=== PATIENT | female | born 1945 | race Caucasian/White ===

== ENCOUNTER → 2019-12-10 | Outpatient (CLI) | payer MEDICARE ==
--- NOTE | 2019-12-14 11:12 | MM ---
Reason for exam: additional evaluation requested from prior study. Last mammogram was performed 11 months ago. History: Patient is postmenopausal. Lumpectomy of the right breast, January 26, 2019. Excisional biopsy of the right breast, 2019. Radiation therapy. Took hormonal contraceptives for 10 years. Took estrogen for 15 years. Physical Findings: Nurse did not find any significant physical abnormalities on exam. MG 3D Diag Mammo W/Cad SANTANA Bilateral CC and MLO view(s) were taken. XCCL view(s) were taken of the right breast. Prior study comparison: December 31, 2018, mammogram. December 08, 2018, mammogram. June 11, 2016, mammogram. May 18, 2010, mammogram. The breast tissue is heterogeneously dense. This may lower the sensitivity of mammography. Post surgical and post therapy change right breast, continued follow up recommeded. Inferior posterior asymmetric density on the left MLO does not persist on the second MLO. These results were verbally communicated with the patient and result sheet given to the patient on 12/10/19. ASSESSMENT: Probably benign, BI-RAD 3 RECOMMENDATION: Follow-up diagnostic mammogram of the right breast in 6 months. (post therapy follow up)
== END | disposition home or self-care (01) ==
LOC: RADMAMWWP 12:48
PROVIDERS: ATTEND Radiology Radiation Oncology
DX: C50.411 Malignant neoplasm of upper-outer quadrant of right female breast (principal); Z17.0 Estrogen receptor positive status [ER+]
CPT/HCPCS: 77066; G0279; 77062

== ENCOUNTER → 2020-06-09 | Outpatient (CLI) | payer MEDICARE ==
--- NOTE | 2020-06-09 12:32 | MM ---
Reason for exam: follow-up at short interval from prior study. Last mammogram was performed 6 months ago. History: Patient is postmenopausal and has history of breast cancer at age 73. Lumpectomy of the right breast, January 26, 2019. Excisional biopsy of the right breast, 2018. Radiation therapy. Took hormonal contraceptives for 10 years. Took estrogen for 15 years. Physical Findings: Nurse did not find any significant physical abnormalities on exam. MG 3D Diag Mammo W/Cad RT CC, MLO, and XCCL view(s) were taken of the right breast. Prior study comparison: December 10, 2019, bilateral MG 3d diag mammo w/cad SANTANA. The breast tissue is heterogeneously dense. This may lower the sensitivity of mammography. Post surgical and post therapy change right breast. Central CC asymmetric density does not persist on the XCCL view. Continued follow up recommended to assess for any evolving post therapy change. These results were verbally communicated with the patient and result sheet given to the patient on 06/09/20. ASSESSMENT: Probably benign, BI-RAD 3 RECOMMENDATION: Follow-up diagnostic mammogram of both breasts in 6 months. Back on schedule for November 2020.
== END | disposition home or self-care (01) ==
LOC: RADMAMWWP 10:47
PROVIDERS: ATTEND Radiology Radiation Oncology
DX: C50.411 Malignant neoplasm of upper-outer quadrant of right female breast (principal); Z85.3 Personal history of malignant neoplasm of breast; Z78.0 Asymptomatic menopausal state
CPT/HCPCS: 77065; G0279; 77061

== ENCOUNTER → 2020-12-12 | Outpatient (CLI) | payer MEDICARE ==
--- NOTE | 2020-12-12 09:45 | MM ---
Reason for exam: additional evaluation requested from prior study. Last mammogram was performed 6 months ago. History: Patient is postmenopausal and has history of breast cancer at age 73. Lumpectomy of the right breast, January 26, 2019. Excisional biopsy of the right breast, 2018. Radiation therapy. Took hormonal contraceptives for 10 years. Took estrogen for 15 years. Physical Findings: Nurse did not find any significant physical abnormalities on exam. MG 3D Diag Mammo W/Cad SANTANA Bilateral CC and MLO view(s) were taken. Prior study comparison: June 09, 2020, right breast MG 3d diag mammo w/cad RT. December 10, 2019, bilateral MG 3d diag mammo w/cad SANTANA. The breast tissue is heterogeneously dense. This may lower the sensitivity of mammography. Finding: Architectural distortion in the upper outer quadrant, posterior position of the right breast consistent with post treatment changes. There is no discrete abnormality. These results were verbally communicated with the patient and result sheet given to the patient on 12/12/20. ASSESSMENT: Benign, BI-RAD 2 RECOMMENDATION: Follow-up diagnostic mammogram of both breasts in 1 year.
== END | disposition home or self-care (01) ==
LOC: RADMAMWWP 08:41
PROVIDERS: ATTEND Radiology Radiation Oncology
DX: N64.89 Other specified disorders of breast (principal); Z85.3 Personal history of malignant neoplasm of breast; Z78.0 Asymptomatic menopausal state
CPT/HCPCS: 77066; G0279; 77062

== ENCOUNTER → 2021-12-13 | Outpatient (CLI) | payer MEDICARE ==
--- NOTE | 2021-12-13 13:57 | MM ---
Reason for Exam: Hx of breast cancer, conservation therapy. Last screening mammogram was performed 12 month(s) ago. Patient History: Menarche at age 16. First Full-Term at age 19. Right ovary removed at age 31. Postmenopausal. Breast cancer, right, age 73. Previous chest radiation therapy at age 73. Patient used Estrogen for 15 years. Patient used Hormonal Contraceptives for 10 years. 2019, Excisional Biopsy on the Right side. 01/26/2019, Lumpectomy on the Right side. Radiation Therapy. Prior Study Comparison: 12/10/2019 Bilateral Diagnostic Mammogram, [facility]. 06/09/2020 Right Diagnostic Mammogram, [facility]. 12/12/2020 Bilateral Diagnostic Mammogram, [facility]. Tissue Density: The breast tissue is heterogeneously dense. This may lower the sensitivity of mammography. Findings: Analyzed By CAD. Postsurgical and posttreatment change right breast. No significant change from prior exams. Overall Assessment: Benign, BI-RAD 2 Management: Screening Mammogram of both breasts in 1 year. 1. Patient should continue monthly self breast exams. 2. A clinical breast exam by your physician is recommended on an annual basis. 3. This exam should not preclude additional follow-up of suspicious palpable abnormalities. Results were given to the patient verbally at the time of exam. Electronically signed and approved by: Corky Sandoval M.D. Radiologist
== END | disposition home or self-care (01) ==
LOC: RADMAMWWP 12:48
PROVIDERS: ATTEND Radiology Radiation Oncology
DX: C50.411 Malignant neoplasm of upper-outer quadrant of right female breast (principal); Z78.0 Asymptomatic menopausal state
CPT/HCPCS: 77066; G0279; 77062

== ENCOUNTER → 2022-12-16 | Outpatient (CLI) | payer MEDICARE ==
--- NOTE | 2022-12-16 11:19 | MM ---
Reason for Exam: Hx of breast cancer, conservation therapy. Last mammogram was performed 2 year(s) and 0 month(s) ago. Patient History: Menarche at age 16. First Full-Term at age 19. Right ovary removed at age 31. Postmenopausal. Breast cancer, right, age 73. Previous chest radiation therapy at age 73. Patient used Estrogen for 15 years. Patient used Hormonal Contraceptives for 10 years. 2019, Excisional Biopsy on the Right side. 01/26/2019, Lumpectomy on the Right side. Radiation Therapy. Prior Study Comparison: 05/18/2010 Screening Mammogram, Unknown. 06/11/2016 Screening Mammogram, Unknown. 12/08/2018 Screening Mammogram, Unknown. 12/31/2018 Screening Mammogram, Unknown. 12/10/2019 Bilateral Diagnostic Mammogram, [facility]. 06/09/2020 Right Diagnostic Mammogram, [facility]. 12/12/2020 Bilateral Diagnostic Mammogram, [facility]. 12/13/2021 Bilateral MG 3D diag mammo w/cad SANTANA, [facility]. Tissue Density: The breast tissue is heterogeneously dense. This may lower the sensitivity of mammography. Findings: Analyzed By CAD. Right breast surgical clips. No new suspicious masses, calcifications or distortions. Overall Assessment: Benign, BI-RAD 2 Management: Screening Mammogram of both breasts in 1 year. Results were given to the patient verbally at the time of exam. Patient should continue monthly self-breast exams. A clinical breast exam by your physician is recommended on an annual basis. This exam should not preclude additional follow-up of suspicious palpable abnormalities. Note on Kate scores and lifetime risk: 1. A Kate score greater than 3% is considered moderate risk. If this is the case, consider specialist referral to assess eligibility for a risk reducing agent. 2. If overall lifetime risk for the development of breast cancer is 20% or higher, the patient may qualify for future screening with alternating mammogram and breast MRI. Electronically signed and approved by: Chandler Rai DO
== END | disposition home or self-care (01) ==
LOC: RADMAMWWP 10:42
PROVIDERS: ATTEND Radiology Radiation Oncology
DX: R92.333 Mammographic heterogeneous density, bilateral breasts (principal); Z78.0 Asymptomatic menopausal state; Z85.3 Personal history of malignant neoplasm of breast
CPT/HCPCS: 77062; 77066

== ENCOUNTER → 2023-07-25 | Outpatient (CLI) | payer MEDICARE ==
[2023-07-25 18:18] LABS: ALT 25 U/L (8-44); AST 27 U/L (13-35); Chol/HDL Ratio 2.68 Ratio; LDL Cholesterol,Calculated 72.4 mg/dL (0.0-131.0)
== END | disposition home or self-care (01) ==
LOC: LABWHC1 09:35
PROVIDERS: ATTEND Internal Medicine Cardiovascular Disease
DX: E78.2 Mixed hyperlipidemia (principal)
CPT/HCPCS: 36415; 80061; 84450; 84460

== ENCOUNTER 2023-10-30 15:39 | Observation (INO) | payer MEDICARE ==
[2023-10-30 16:12] LABS: Basophils # (A) 0.1 k/uL (0-0.2); Basophils % (A) 1 %; Eosinophils # (A) 0.5 k/uL (0-0.7); Eosinophils % (A) 6 %; HCT 42.6 % (34.0-46.0); HGB 13.9 gm/dL (11.4-16.0); Lymphocytes # (A) 1.8 k/uL (1.0-4.8); Lymphocytes % (A) 21 %; MCH 29.1 pg (25.0-35.0); MCHC 32.6 g/dL (31.0-37.0); MCV 89.1 fL (80.0-100.0); Mean Platelet Volume 8.7; Monocytes # (A) 0.7 k/uL (0-1.0); Monocytes % (A) 8 %; Neutrophils # (A) 5.3 k/uL (1.3-7.7); Neutrophils % (A) 63 %; Platelet Count 227 k/uL (150-450); RBC 4.78 m/uL (3.80-5.40); RDW 12.6 % (11.5-15.5); WBC 8.5 k/uL (3.8-10.6)
[2023-10-30 16:31] LABS: ALT 17 U/L (4-34); AST 31 U/L (14-36); African American GFR (CKD) >90 (>60 ml/min/1.73 sqM); Albumin 3.8 g/dL (3.5-5.0); Alkaline Phosphatase 74 U/L (38-126); Anion Gap 7 mmol/L; Blood Urea Nitrogen 12 mg/dL (7-17); Calcium 9.2 mg/dL (8.4-10.2); Carbon Dioxide 28 mmol/L (22-30); Chloride 104 mmol/L (98-107); Glucose 123 mg/dL (74-99); Magnesium 1.9 mg/dL (1.6-2.3); Non-African American GFR(CKD) 84 (>60 ml/min/1.73 sqM); Potassium 3.8 mmol/L (3.5-5.1); Sodium 139 mmol/L (137-145); Total Bilirubin 1.1 mg/dL (0.2-1.3); Total Protein 6.6 g/dL (6.3-8.2)
[2023-10-30 16:32] LABS: INR 0.8 (<1.2); Partial Thromboplastin Time 22.9 sec (22.0-30.0); Prothrombin Time 9.6 sec (10.0-12.5)
--- NOTE | 2023-10-30 16:37 | ED ---
General Adult HPI - General Chief complaint: Chest Pain Stated complaint: upper back pain Time Seen by Provider: 10/30/23 15:50 Source: patient, RN notes reviewed, old records reviewed Mode of arrival: ambulatory Limitations: no limitations - History of Present Illness Initial comments: This is a 78-year-old female who presents to the emergency department stating that she was sitting in a chair and she started having pain under the left scapula. Patient states she also has a little bit of anterior left chest pain when she takes a deep breath. Patient denies any fever chills or cough. Patient states certain movements do seem to make the pain worse but not always. Patient denies shortness of breath but states there is some pain occasionally to deep breathing. Patient has had a heart attack in the past and states that the pain was all in her back at that time 2. Patient denies any abdominal pain patient has nausea vomiting diarrhea - Related Data Home Medications Medication Instructions Recorded Confirmed ALPRAZolam [Xanax] 0.25 - 0.5 mg PO TID PRN 10/30/23 10/30/23 Aspirin EC [Ecotrin Low Dose] 81 mg PO DAILY 10/30/23 10/30/23 Cholecalciferol (Vitamin D3) 50 mcg PO DAILY 10/30/23 10/30/23 [Vitamin D3 (50 Mcg = 2000 Iu)] Cyclobenzaprine [Flexeril] 10 mg PO Q8H PRN 10/30/23 10/30/23 Ezetimibe/Simvastatin 1 tab PO DAILY 10/30/23 10/30/23 [Ezetimibe-Simvastatin 10-40 mg] PARoxetine HCL 40 mg PO DAILY 10/30/23 10/30/23 atenoloL 25 mg PO BID 10/30/23 10/30/23 Allergies Allergy/AdvReac Type Severity Reaction Status Date / Time Penicillins Allergy Rash/Hives Verified 10/30/23 17:41 Sulfa (Sulfonamide Allergy Rash/Hives Verified 10/30/23 17:41 Antibiotics) Review of Systems ROS Statement: Those systems with pertinent positive or pertinent negative responses have been documented in the HPI. ROS Other: All systems not noted in ROS Statement are negative. Past Medical History Past Medical History: Coronary Artery Disease (CAD), Chest Pain / Angina, Hyperlipidemia, Hypertension History of Any Multi-Drug Resistant Organisms: None Reported Past Psychological History: Depression Smoking Status: Never smoker Past Alcohol Use History: None Reported Past Drug Use History: None Reported General Exam - General Exam Comments Initial Comments: GENERAL: Patient is well-developed and well-nourished. Patient is nontoxic and well-hy drated and is in mild distress. ENT: Neck is soft and supple. No significant lymphadenopathy is noted. Oropharynx is clear. Moist mucous membranes. Neck has full range of motion without eliciting any pain. EYES: The sclera were anicteric and conjunctiva were pink and moist. Extraocular move ments were intact and pupils were equal round and reactive to light. Eyelids were unremarkable. PULMONARY: Unlabored respirations. Good breath sounds bilaterally. No audible rales rhonchi or wheezing was noted. CARDIOVASCULAR: There is a regular rate and rhythm without any murmurs gallops or rubs. ABDOMEN: Soft and nontender with normal bowel sounds. SKIN: Skin is clear with no lesions or rashes and otherwise unremarkable. NEUROLOGIC: Patient is alert and oriented x3. Cranial nerves II through XII are grossly intact. Motor and sensory are also intact. Normal speech, volume and content. Symmetrical smile. MUSCULOSKELETAL: Normal extremities with adequate strength and full range of motion. No lower extremity swelling or edema. No calf tenderness. I was unable to elicit the patient's pain on palpation or with movement of the arm LYMPHATICS: No significant lymphadenopathy is noted PSYCHIATRIC: Normal psychiatric evaluation. Limitations: no limitations Course Vital Signs 10/30/23 15:41 Temperature 98.3 F Pulse Rate 76 Respiratory 20 Rate Blood Pressure 159/99 O2 Sat by Pulse 97 Oximetry Medical Decision Making - Medical Decision Making EKG is interpreted by myself but EKG shows sinus rhythm at 66 bpm [place] interval 184 QRS is 80 QT interval 390 QTc is 402. Patient's EKG shows no ST segment elevation or depression Was pt. sent in by a medical professional or institution (, PA, DIESEL ENGINE PIPE FITTER, urgent care, hospital, or residential...) When possible be specific @ -No Did you speak to anyone other than the patient for history (EMS, parent, family, police, friend...)? What history was obtained from this source @ -No Did you review nursing and triage notes (agree or disagree)? Why? @ -I reviewed and agree with nursing and triage notes Were old charts reviewed (outside hosp., previous admission, EMS record, old EKG, old radiological studies, urgent care reports/EKG's, residential records)? Report findings @ -No old charts were reviewed Differential Diagnosis? @ -Differential Chest Pain: Stable Angina, Unstable Angina, STEMI, NSTEMI Aortic Dissection, Pneumothorax, Musculoskeletal, Esophageal Spasm GERD, Cholecystitis, Pancreatitis, Zoster, this is not meant to be an all-inclusive list. EKG interpreted by me (3pts min.). @ -As above X-rays interpreted by me (1pt min.). @ -Chest x-ray shows no acute normality CT interpreted by me (1pt min.). @ -None done U/S interpreted by me (1pt. min.). @ -None done What testing was considered but not performed or refused? (CT, X-rays, U/S, labs)? Why? @ -None What meds were considered but not given or refused? Why? @ -None Did you discuss the management of the patient with other professionals (professionals i.e. , PA, DIESEL ENGINE PIPE FITTER, lab, RT, psych nurse, family welfare social work professor, school occupational therapist, teacher, control officer, oil field caser)? Give summary @ -I spoke with [facility]ist they agreed admit the patient admit the patient wrote admitting orders Was smoking cessation discussed for >3mins.? @ -No Was critical care preformed (if so, how long)? @ -No Were there social determinants of health that impacted care today? How? (Homelessness, low income, unemployed, alcoholism, drug addiction, transportation, low edu. Level, literacy, decrease access to med. care, mcc, re hab)? @ -No Was there de-escalation of care discussed even if they declined (Discuss DNR or withdrawal of care, Hospice)? DNR status @ -No What co-morbidities impacted this encounter? (DM, HTN, Smoking, COPD, CAD, Cancer, CVA, ARF, Chemo, Hep., AIDS, mental health diagnosis, sleep apnea, morbid obesity)? @ -None Was patient admitted / discharged? Hospital course, mention meds given and route, prescriptions, significant lab abnormalities, going to OR and other pertinent info. @ -I went in the room after lab work came back and discussed the lab work with the patient and she stated to me that that nitro cream that I put on her chest took away her pain entirely. Was at this point in time along with her past history that I saw the patient should be admitted I spoke with [facility] hospitalist agreed admit the patient admit the patient wrote admitting orders and I consulted cardiology Undiagnosed new problem with uncertain prognosis? @ -No Drug Therapy requiring intensive monitoring for toxicity (Heparin, Nitro, Insulin, Cardizem)? @ -No Were any procedures done? @ -No Diagnosis/symptom? @ -Chest pain Acute, or Chronic, or Acute on Chronic? @ -Acute Uncomplicated (without systemic symptoms) or Complicated (systemic symptoms)? @ -Complicated Side effects of treatment? @ -No Exacerbation, Progression, or Severe Exacerbation? @ -No Poses a threat to life or bodily function? How? (Chest pain, [place], [place], pneumonia, PE, COPD, DKA, ARF, appy, cholecystitis, CVA, Diverticulitis, Homicidal, Suicidal, threat to staff... and all critical care pts) @ -Yes this could lead to an [place] and end organ dysfunction - Lab Data Result diagrams: 10/30/23 15:49 10/30/23 15:49 Lab Results 10/30/23 10/30/23 10/30/23 Range/Units 15:49 15:49 15:49 WBC 8.5 (3.8-10.6) k/uL RBC 4.78 (3.80-5.40) m/uL Hgb 13.9 (11.4-16.0) gm/dL Hct 42.6 (34.0-46.0) % MCV 89.1 (80.0-100.0) fL MCH 29.1 (25.0-35.0) pg MCHC 32.6 (31.0-37.0) g/dL RDW 12.6 (11.5-15.5) % Plt Count 227 (150-450) k/uL MPV 8.7 Neutrophils % 63 % Lymphocytes % 21 % Monocytes % 8 % Eosinophils % 6 % Basophils % 1 % Neutrophils # 5.3 (1.3-7.7) k/uL Lymphocytes # 1.8 (1.0-4.8) k/uL Monocytes # 0.7 (0-1.0) k/uL Eosinophils # 0.5 (0-0.7) k/uL Basophils # 0.1 (0-0.2) k/uL PT 9.6 L (10.0-12.5) sec INR 0.8 (<1.2) APTT 22.9 (22.0-30.0) sec D-Dimer (<0.60) mg/L FEU Sodium 139 (137-145) mmol/L Potassium 3.8 (3.5-5.1) mmol/L Chloride 104 (98-107) mmol/L Carbon Dioxide 28 (22-30) mmol/L Anion Gap 7 mmol/L BUN 12 (7-17) mg/dL Creatinine 0.70 (0.52-1.04) mg/dL Est GFR (CKD-EPI)AfAm >90 (>60 ml/min/1.73 sqM) Est GFR (CKD-EPI)NonAf 84 (>60 ml/min/1.73 sqM) Glucose 123 H (74-99) mg/dL Calcium 9.2 (8.4-10.2) mg/dL Magnesium 1.9 (1.6-2.3) mg/dL Total Bilirubin 1.1 (0.2-1.3) mg/dL AST 31 (14-36) U/L ALT 17 (4-34) U/L Alkaline Phosphatase 74 (38-126) U/L Troponin I (0.000-0.034) ng/mL Total Protein 6.6 (6.3-8.2) g/dL Albumin 3.8 (3.5-5.0) g/dL 10/30/23 10/30/23 Range/Units 15:49 15:49 WBC (3.8-10.6) k/uL RBC (3.80-5.40) m/uL Hgb (11.4-16.0) gm/dL Hct (34.0-46.0) % MCV (80.0-100.0) fL MCH (25.0-35.0) pg MCHC (31.0-37.0) g/dL RDW (11.5-15.5) % Plt Count (150-450) k/uL MPV Neutrophils % % Lymphocytes % % Monocytes % % Eosinophils % % Basophils % % Neutrophils # (1.3-7.7) k/uL Lymphocytes # (1.0-4.8) k/uL Monocytes # (0-1.0) k/uL Eosinophils # (0-0.7) k/uL Basophils # (0-0.2) k/uL PT (10.0-12.5) sec INR (<1.2) APTT (22.0-30.0) sec D-Dimer 0.56 (<0.60) mg/L FEU Sodium (137-145) mmol/L Potassium (3.5-5.1) mmol/L Chloride (98-107) mmol/L Carbon Dioxide (22-30) mmol/L Anion Gap mmol/L BUN (7-17) mg/dL Creatinine (0.52-1.04) mg/dL Est GFR (CKD-EPI)AfAm (>60 ml/min/1.73 sqM) Est GFR (CKD-EPI)NonAf (>60 ml/min/1.73 sqM) Glucose (74-99) mg/dL Calcium (8.4-10.2) mg/dL Magnesium (1.6-2.3) mg/dL Total Bilirubin (0.2-1.3) mg/dL AST (14-36) U/L ALT (4-34) U/L Alkaline Phosphatase (38-126) U/L Troponin I <0.012 (0.000-0.034) ng/mL Total Protein (6.3-8.2) g/dL Albumin (3.5-5.0) g/dL Disposition Clinical Impression: Chest pain Disposition: ADMITTED IP TO THIS [facility] Referrals: Som Ivy MD [Primary Care Provider] - 1-2 days Time of Disposition: 18:18
[2023-10-30] MEDS: NITROGLYCERIN OINT 1 INCH/GM PACKET TOPICAL STA (16:56)
[2023-10-30] MEDS: ASPIRIN 81 MG PO STA (16:56)
--- NOTE | 2023-10-30 17:06 | XR ---
EXAMINATION TYPE: XR chest 2V DATE OF EXAM: 10/30/2023 4:48 PM CLINICAL INDICATION: Female, 78 years old with history of Chest Pain; COMPARISON: None TECHNIQUE: XR chest 2V Frontal view of the chest. FINDINGS: Lungs/Pleura: There is no evidence of pleural effusion, focal consolidation, or pneumothorax. Pulmonary vascularity: Unremarkable. Heart/mediastinum: Cardiomediastinal silhouette is unremarkable. Musculoskeletal: No acute osseous pathology. IMPRESSION: 1. No acute cardiopulmonary disease process. 2. COPD changes.
[2023-10-30] MEDS ORDERED: NITROGLYCERIN SL TABS 0.4 MG TAB SUBLINGUAL PRN (18:19)
[2023-10-30] MEDS ORDERED: ALPRAZolam 0.5 MG TAB PO PRN (18:20)
[2023-10-30] MEDS ORDERED: CYCLOBENZAPRINE 10 MG TAB PO PRN (18:20)
[2023-10-30] MEDS: atenoloL 25 MG TAB PO SCH (21:08)
[2023-10-30] MEDS: NITROGLYCERIN OINT 1 INCH/GM PACKET TOPICAL SCH (23:51)
[2023-10-31] MEDS ORDERED: ALPRAZolam 0.5 MG TAB PO PRN (07:51)
[2023-10-31] MEDS ORDERED: NITROGLYCERIN SL TABS 0.4 MG TAB SUBLINGUAL PRN (07:51)
[2023-10-31 08:50] LABS: Chol/HDL Ratio 3.22 Ratio; LDL Cholesterol,Calculated 78.8 mg/dL (0.0-131.0)
[2023-10-31] MEDS: ATORVASTATIN 80 MG TAB PO STA (08:58)
[2023-10-31] MEDS: ASPIRIN 325 MG TAB PO STA (08:58)
[2023-10-31] MEDS: ASPIRIN 325 MG TAB PO SCH (08:58)
[2023-10-31] MEDS: EZETIMIBE 10 MG TAB PO SCH (08:59)
[2023-10-31] MEDS: ATORVASTATIN 20 MG TAB PO SCH (08:59)
[2023-10-31] MEDS: SODIUM CHLORIDE 0.9% 1,000 ML in EMPTY BAG 1 BAG IV SCH (09:22)
--- NOTE | 2023-10-31 09:28 | P.CRDCN ---
History of Present Illness History of present illness: HISTORY OF PRESENT ILLNESS: This is a 78-year-old female with a past medical history significant for hypertension and hyperlipidemia. Patient follows in the office with Dr. Duarte. We have been asked to see the patient in consultation for chest pain. Patient examined at the bedside by Dr. Duarte. Patient states that she was at [employer] when she began to have pain in the middle of her chest. She states the pain radiated into her left arm and shoulder blade. At the time of examination, the patient denies any chest pain or pressure. Vital signs are stable. DIAGNOSTICS: - EKG reveals sinus mechanism with no signs of acute ischemia - Chest xray negative for acute process. COPD changes. - Laboratory data: Troponin negative x 3 - Current home cardiac medications include atenolol 25 mg twice a day, ezetimibe/simvastatin 10-40 mg daily, aspirin 81 mg daily - Most recent echocardiogram obtained in 2020 revealed ejection fraction 50 to 55%, mild mitral regurgitation, mild tricuspid regurgitation - Cardiac catheterization history: 2007 revealing minimal CAD REVIEW OF SYSTEMS: At the time of my exam: CONSTITUTIONAL: Denies fever or chills. HEENT: Denies blurred vision, vision changes, or eye pain. Denies hemoptysis CARDIOVASCULAR: Denies chest pain. Denies orthopnea. Denies PND. Denies palpitations RESPIRATORY: Denies shortness of breath. GASTROINTESTINAL: Denies abdominal pain. Denies nausea or vomiting. HEMATOLOGIC: Denies bleeding disorders. GENITOURINARY: Denies any blood in urine. SKIN: Denies pruitis. Denies rash. PHYSICAL EXAM: VITAL SIGNS: Reviewed. GENERAL: Well-developed in no acute distress. HEENT: Head is normocephalic. Pupils are equal, round. Sclerae anicteric. Mucous membranes of the mouth are moist. Neck supple. No JVD or thyromegaly LUNGS: Respirations even and unlabored. Lungs essentially clear to auscultation bilaterally. HEART: Regular rate and rhythm. S1 and S2 heard. ABDOMEN: Soft. Nondistended. Nontender. EXTREMITIES: Normal range of motion. No clubbing or cyanosis. Peripheral pulses intact. No lower extremity edema NEUROLOGIC: Awake and alert. Oriented x 3. ASSESSMENT: Chest pain/unstable angina Minimal CAD, per cardiac catheterization 2007 Hypertension Hyperlipidemia PLAN: An acute coronary event has been ruled out Obtain 2D echo to assess cardiac structure and function Resume home cardiac medications Patient to undergo cardiac catheterization today with Dr. Duarte Further recommendations pending patient course Nurse practitioner note has been reviewed by physician. Signing provider agrees with the documented findings, assessment, and plan of care documented by TECHNICAL PROPOSAL WRITER as a scribe. Past Medical History Past Medical History: Coronary Artery Disease (CAD), Chest Pain / Angina, Hyperlipidemia, Hypertension History of Any Multi-Drug Resistant Organisms: None Reported Past Surgical History: Appendectomy, Tonsillectomy Additional Past Surgical History / Comment(s): R lung tumor, R lumpectomy with node removal, benign Past Psychological History: Depression Smoking Status: Never smoker Past Alcohol Use History: None Reported Past Drug Use History: None Reported - Past Family History Mother Additional Family Medical History / Comment(s): Heart problems Medications and Allergies Home Medications Medication Instructions Recorded Confirmed Type ALPRAZolam [Xanax] 0.25 - 0.5 mg PO TID PRN 10/30/23 10/30/23 History Aspirin EC [Ecotrin Low Dose] 81 mg PO DAILY 10/30/23 10/30/23 History Cholecalciferol (Vitamin D3) 50 mcg PO DAILY 10/30/23 10/30/23 History [Vitamin D3 (50 Mcg = 2000 Iu)] Cyclobenzaprine [Flexeril] 10 mg PO Q8H PRN 10/30/23 10/30/23 History Ezetimibe/Simvastatin 1 tab PO DAILY 10/30/23 10/30/23 History [Ezetimibe-Simvastatin 10-40 mg] PARoxetine HCL 40 mg PO DAILY 10/30/23 10/30/23 History atenoloL 25 mg PO BID 10/30/23 10/30/23 History Allergies Allergy/AdvReac Type Severity Reaction Status Date / Time Penicillins Allergy Rash/Hives Verified 10/30/23 17:41 Sulfa (Sulfonamide Allergy Rash/Hives Verified 10/30/23 17:41 Antibiotics) Physical Exam Vitals: Vital Signs Temp Pulse Pulse Resp BP BP Pulse Ox 10/31/23 02:37 97.7 F 59 L 16 133/78 95 10/31/23 00:02 97.8 F 56 L 16 157/74 97 10/30/23 22:19 98.0 F 58 L 16 131/78 94 L 10/30/23 21:07 67 16 123/95 94 L 10/30/23 20:07 97.8 F 73 18 146/91 95 10/30/23 15:41 98.3 F 76 20 159/99 97 Intake and Output 10/30/23 10/31/23 10/31/23 22:59 06:59 14:59 Intake Total 0 Balance 0 Intake: Oral 0 Other: Voiding Method Toilet # Voids 2 Weight 78.925 kg Results 10/30/23 15:49 10/30/23 15:49 Cardiac Enzymes 10/30/23 10/30/23 10/30/23 Range/Units 15:49 15:49 18:52 AST 31 (14-36) U/L Troponin I <0.012 <0.012 (0.000-0.034) ng/mL 10/30/23 Range/Units 21:34 AST (14-36) U/L Troponin I <0.012 (0.000-0.034) ng/mL Coagulation 10/30/23 Range/Units 15:49 PT 9.6 L (10.0-12.5) sec APTT 22.9 (22.0-30.0) sec Lipids 10/30/23 Range/Units 02:32 Triglycerides 147.00 (0.00-149.00) mg/dL Cholesterol 157.00 (0.00-200.00) mg/dL HDL Cholesterol 48.80 (40.00-60.00) mg/dL Cholesterol/HDL Ratio 3.22 Ratio CBC 10/30/23 Range/Units 15:49 WBC 8.5 (3.8-10.6) k/uL RBC 4.78 (3.80-5.40) m/uL Hgb 13.9 (11.4-16.0) gm/dL Hct 42.6 (34.0-46.0) % Plt Count 227 (150-450) k/uL Comprehensive Metabolic Panel 10/30/23 Range/Units 15:49 Sodium 139 (137-145) mmol/L Potassium 3.8 (3.5-5.1) mmol/L Chloride 104 (98-107) mmol/L Carbon Dioxide 28 (22-30) mmol/L BUN 12 (7-17) mg/dL Creatinine 0.70 (0.52-1.04) mg/dL Glucose 123 H (74-99) mg/dL Calcium 9.2 (8.4-10.2) mg/dL AST 31 (14-36) U/L ALT 17 (4-34) U/L Alkaline Phosphatase 74 (38-126) U/L Total Protein 6.6 (6.3-8.2) g/dL Albumin 3.8 (3.5-5.0) g/dL Current Medications Generic Name Dose Route Start Last Admin Trade Name Freq PRN Reason Stop Dose Admin Alprazolam 0.25 mg 10/30/23 18:20 Alprazolam 0.5 Mg Tab PO TID PRN Anxiety Alprazolam 0.25 mg 10/31/23 07:51 Alprazolam 0.25 Mg Tab PO Q6HR PRN Mild Anxiety Alprazolam 0.5 mg 10/31/23 07:51 Alprazolam 0.5 Mg Tab PO Q6HR PRN Moderate Anxiety Aspirin 325 mg 10/31/23 09:00 10/31/23 08:58 Aspirin 325 Mg Tab PO Not Given DAILY [facility] Atenolol 25 mg 10/30/23 21:00 10/31/23 08:58 Atenolol 25 Mg Tab PO 25 mg BID [facility] Administration Atorvastatin Calcium 20 mg 10/31/23 09:00 10/31/23 08:59 Atorvastatin 20 Mg Tab PO Not Given DAILY [facility] Cyclobenzaprine HCl 10 mg 10/30/23 18:20 Cyclobenzaprine 10 Mg Tab PO Q8H PRN Muscle Spasm Ezetimibe 10 mg 10/31/23 09:00 10/31/23 09:01 Ezetimibe 10 Mg Tab PO Not Given DAILY [facility] Heparin Sodium (Porcine) 10, 1,001 mls @ 999 mls/hr 11/01/23 07:00 000 unit/ Sodium Chloride IRRIGATION 11/01/23 23:00 ONCE PRN INTRA-OP Heparin Sodium (Porcine) 2,500 250.5 mls @ 250 mls/hr 11/01/23 07:00 unit/ Sodium Chloride IRRIGATION 11/01/23 23:00 ONCE PRN INTRA-OP Sodium Chloride 1,000 ml/ IV 1,000 mls @ 78.925 mls/hr 10/31/23 08:00 10/31/23 09:22 Solution IV 78.925 mls/hr .[id number] EVELYN Administration 1 ML/KG/HR Nitroglycerin 0.4 mg 10/30/23 18:19 Nitroglycerin Sl Tabs 0.4 Mg Tab SUBLINGUAL Q5M PRN Chest Pain Nitroglycerin 1 inch 10/31/23 00:00 10/31/23 06:02 Nitroglycerin Oint 1 Inch/Gm Packet TOPICAL Not Given Q6HR EVELYN Nitroglycerin 0.4 mg 10/31/23 07:51 Nitroglycerin Sl Tabs 0.4 Mg Tab SUBLINGUAL Q5M PRN Chest Pain Paroxetine HCl 40 mg 10/31/23 09:00 Paroxetine 20 Mg Tab PO DAILY EVELYN Intake and Output 10/30/23 10/31/23 10/31/23 22:59 06:59 14:59 Intake Total 0 Balance 0 Intake: Oral 0 Other: Voiding Method Toilet # Voids 2 Weight 78.925 kg 10/30/23 15:49 10/30/23 15:49
[2023-10-31] MEDS: LIDOCAINE 1% INJ 10MG/ML (20 ML MDV) SQ ONE (10:25)
[2023-10-31] MEDS: VERAPAMIL SYRINGE (5 MG/10 ML) INTRAARTER ONE (10:26)
[2023-10-31] MEDS: MIDAZOLAM 2 MG/2 ML VIAL IVP ONE (10:26)
[2023-10-31] MEDS: fentaNYL (PF) 50 MCG/ML 2 ML AMP IVP ONE (10:26)
[2023-10-31] MEDS: HEPARIN SODIUM 1,000 UN/ML (10ML VL) IVP ONE (10:30)
[2023-10-31] MEDS: SODIUM CHLORIDE 0.9% 1,000 ML IV ONE (10:34)
[2023-10-31] MEDS: HEPARIN SODIUM,PORCINE 10,000 UNIT in SODIUM CHLORIDE 0.9% 1,000 ML IRRIGATION PRN (10:34)
[2023-10-31] MEDS: HEPARIN SODIUM,PORCINE (1 ML) 2,500 UNIT in SODIUM CHLORIDE 0.9% 250 ML IRRIGATION PRN (10:35)
[2023-10-31] MEDS: IOPAMIDOL-370 100ML BTL INJ ONE (10:40)
[2023-10-31] MEDS ORDERED: RX INFO: IV CONTRAST WAS GIVEN 1 EACH MISC MISCELLANE PRN (11:15)
[2023-10-31] MEDS: CHOLECALCIFEROL 25 MCG (1000 IU) TABLET PO SCH (11:49)
[2023-10-31] MEDS: PARoxetine 20 MG TAB PO SCH (11:49)
--- NOTE | 2023-10-31 12:09 | CC ---
CARDIAC CATHETERIZATION REPORT INDICATIONS: Unstable angina. PROCEDURE NOTE: After obtaining informed consent, left heart catheterization and coronary angiogram were performed via the right radial artery using standard [place] catheters. The patient tolerated the procedure well without any obvious immediate complications. Right radial artery access was obtained using Seldinger technique, 6-[place] sheath was placed. Catheters and wires were floated into the ascending aorta under fluoroscopic guidance. The patient received moderate conscious sedation. Total sedation time was 16 minutes. She received verapamil and heparin per protocol. Heparin and verapamil per protocol. FINDINGS: 1. Hemodynamics: Left ventricular end-diastolic pressure is 4 mm. There is no significant gradient across the aortic valve. 2. Left Ventriculogram: Left ventriculogram was not performed. 3. Angiographic Data: a.Right coronary artery: Right coronary artery is a large dominant vessel and is free of stenosis. Left main coronary artery is a normal-sized vessel and is free of significant disease, divides into a left anterior descending coronary artery and circumflex coronary artery. LAD and its proximal portion shows irregular ectatic changes with an atherosclerotic plaque with a 40% stenosis. CONCLUSIONS: [id number] nonobstructive disease involving LAD. PLAN: I reviewed angiographic data with the patient and told her that her symptoms are probably noncardiac in origin and her management is going to be in the form of medical therapy. MMODL / IJN: [id number] /
[2023-10-31] MEDS: SODIUM CHLORIDE 0.9% 1,000 ML IV SCH (12:14)
[2023-10-31 16:24] VITALS: BP 152/80; PULSE 67; RESP 16; TEMP 98.1
--- NOTE | 2023-10-31 17:39 | P.HPIM ---
History of Present Illness H&P Date: 10/31/23 Chief Complaint: Chest pain This is a pleasant 78-year-old patient who follows with Dr. Som Ivy. Chronic stable medical conditions include CAD with prior ME over 20 years ago. Hypertension, hyperlipidemia, anxiety depression, osteoarthritis urinary stress incontinence. Patient is present with pain around the left shoulder area. Lasting for good 1 hour. It got relieved with nitroglycerin in the ER. Some associated shortness of breath. No dizziness no lightheadedness. No perspiration. Patient's troponins were negative. Seen by cardiology was taken for cardiac catheterization. Patient found mild to moderate nonobstructive disease involving the LAD. Patient had a right wrist approach by Dr. Lorraine Duarte. Review of systems: GEN.: None EYES: None HEENT: None NECK: None RESPIRATORY: None CARDIOVASCULAR: [As above GASTROINTESTINAL: None GENITOURINARY: Urine stress incontinence e MUSCULOSKELETAL: Joint pains LYMPHATICS: None HEMATOLOGICAL: None PSYCHIATRY: None NEUROLOGICAL: None Social history: Patient is a . Lives alone. No history of smoking alcohol. Physical examination: VITAL SIGNS 98.3, 64, 16, 165 x 92, 96% room air GENERAL: [BMI 28.1, laying in bed awake comfortable. EYES: Pupils equal. Conjunctiva theodore l. HEENT: External appearance of nose and ears normal, oral cavity grossly normal. NECK: JVD not raised; masses not palpable. HEART: First and second heart sounds are normal; no edema. LUNGS: Respiratory rate normal; clear to auscultation. ABDOMEN: Soft, nontender, liver spleen not palpable, no masses palpable. PSYCH: Alert and oriented x3; mood and affect theodore l. MUSCULOSKELETAL:No Clubbing/cyanosis;muscles-grossly intact. OA NEUROLOGICAL: Cranial nerves grossly intact; no facial asymmetry, power and sensation grossly intact. LYMPHATICS: No lymph nodes palpable in the axilla and neck INVESTIGATIONS, reviewed in the clinical context: October 29: White count 8.5 globin 13.9 platelets 227 sodium 139 potassium 3.8 creatinine 0.7 Troponin I x 3 less than 0.012 LDL 78.8 EKG tracing personally reviewed by me-normal sinus rhythm. Some T ST wave changes. Nonspecific Chest x-ray film personally reviewed by me-unremarkable Assessment plan: -Unstable angina in a patient with findings of mild to moderate nonobstructive disease per cardiac catheterization Patient seen by Dr. Lorraine Duarte from cardiology. Status post cardiac catheterization. For medical management. Aspirin. Tenormin. Lipitor. Zetia -Essential hypertension Tenormin 25 mg twice daily -Depression Paxil 40 mg a day -Anxiety Xanax as needed -Primary osteoarthritis Tylenol. Flexeril as needed -Chronic urinary stress incontinence Care was discussed with patient. DC planning per cardiology. Questions answered. Past Medical History Past Medical History: Coronary Artery Disease (CAD), Chest Pain / Angina, Hyperlipidemia, Hypertension History of Any Multi-Drug Resistant Organisms: None Reported Past Surgical History: Appendectomy, Tonsillectomy Additional Past Surgical History / Comment(s): R lung tumor, R lumpectomy with node removal, benign Past Psychological History: Depression Smoking Status: Never smoker Past Alcohol Use History: None Reported Past Drug Use History: None Reported - Past Family History Mother Additional Family Medical History / Comment(s): Heart problems Medications and Allergies Home Medications Medication Instructions Recorded Confirmed Type ALPRAZolam [Xanax] 0.25 - 0.5 mg PO TID PRN 10/30/23 10/30/23 History Aspirin EC [Ecotrin Low Dose] 81 mg PO DAILY 10/30/23 10/30/23 History Cholecalciferol (Vitamin D3) 50 mcg PO DAILY 10/30/23 10/30/23 History [Vitamin D3 (50 Mcg = 2000 Iu)] Cyclobenzaprine [Flexeril] 10 mg PO Q8H PRN 10/30/23 10/30/23 History Ezetimibe/Simvastatin 1 tab PO DAILY 10/30/23 10/30/23 History [Ezetimibe/Simvastatin 10-40 mg] PARoxetine HCL 40 mg PO DAILY 10/30/23 10/30/23 History atenoloL 25 mg PO BID 10/30/23 10/30/23 History Isosorbide Mononitrate ER [Imdur] 30 mg PO DAILY #90 tab 10/31/23 Rx Allergies Allergy/AdvReac Type Severity Reaction Status Date / Time Penicillins Allergy Rash/Hives Verified 10/30/23 17:41 Sulfa (Sulfonamide Allergy Rash/Hives Verified 10/30/23 17:41 Antibiotics) Physical Exam Vitals: Vital Signs Temp Pulse Pulse Resp BP BP Pulse Ox 10/31/23 02:37 97.7 F 59 L 16 133/78 95 10/31/23 00:02 97.8 F 56 L 16 157/74 97 10/30/23 22:19 98.0 F 58 L 16 131/78 94 L 10/30/23 21:07 67 16 123/95 94 L 10/30/23 20:07 97.8 F 73 18 146/91 95 10/30/23 15:41 98.3 F 76 20 159/99 97 Intake and Output 10/30/23 10/31/23 10/31/23 22:59 06:59 14:59 Intake Total 0 Balance 0 Intake: Oral 0 Other: Voiding Method Toilet # Voids 2 Weight 78.925 kg Results CBC & Chem 7: 10/30/23 15:49 10/30/23 15:49 Labs: Abnormal Lab Results - Last 24 Hours (Table) 10/30/23 10/30/23 Range/Units 15:49 15:49 PT 9.6 L (10.0-12.5) sec Glucose 123 H (74-99) mg/dL Thrombosis Risk Factor Assmnt - Choose All That Apply Any of the Below Risk Factors Present?: Yes Each Factor Represents 1 point: Obesity (BMI >25) Other Risk Factors: Yes Each Risk Factor Represents 3 Points: Age 75 years or older Other congenital or acquired thrombophilia - If yes, enter type in comment: No Thrombosis Risk Factor Assessment Total Risk Factor Score: 4 Thrombosis Risk Factor Assessment Level: Moderate Risk
[2023-10-31] MEDS: ALPRAZolam 0.25 MG TAB PO PRN (18:13)
--- NOTE | 2023-10-31 20:17 | P.DS ---
Providers Date of admission: 10/30/23 18:20 Expected date of discharge: 10/31/23 Attending physician: Logan Marr Consults: 10/30/23 18:19 Consult Physician Urgent Consulting Provider: [facility] Consult Reason/Comments: Chest pain Do you want consulting provider notified?: Yes Primary care physician: Som Garvey [facility] Course: Chief Complaint: Chest pain This is a pleasant 78-year-old patient who follows with Dr. Som Ivy. Chronic stable medical conditions include CAD with prior SD over 20 years ago. Hypertension, hyperlipidemia, anxiety depression, osteoarthritis urinary stress incontinence. Patient is present with pain around the left shoulder area. Lasting for good 1 hour. It got relieved with nitroglycerin in the ER. Some associated shortness of breath. No dizziness no lightheadedness. No perspiration. Patient's troponins were negative. Seen by cardiology was taken for cardiac catheterization. Patient found mild to moderate nonobstructive disease involving the LAD. Patient had a right wrist approach by Dr. Lorraine Duarte. Later in the day cardiology cleared the patient for discharge. Will follow-up with him outpatient. Imdur ER 30 mg was added. Patient follow-up with Dr. Lorraine Duarte. Outpatient 2D echo Social history: Patient is a . Lives alone. No history of smoking alcohol. Physical examination: VITAL SIGNS 9 98.1, 67, 16, 152/80, 97% room air GENERAL: [BMI 28.1, comfortable. EYES: Pupils equal. Conjunctiva theodore l. HEENT: External appearance of nose and ears normal, oral cavity grossly normal. NECK: JVD not raised; masses not palpable. HEART: First and second heart sounds are normal; no edema. LUNGS: Respiratory rate normal; clear to auscultation. ABDOMEN: Soft, nontender, liver spleen not palpable, no masses palpable. PSYCH: Alert and oriented x3; mood and affect theodore l. MUSCULOSKELETAL:No Clubbing/cyanosis;muscles-grossly intact. OA NEUROLOGICAL: Cranial nerves grossly intact; no facial asymmetry, power and sensation grossly intact. LYMPHATICS: No lymph nodes palpable in the axilla and neck INVESTIGATIONS, reviewed in the clinical context: Cardiac catheterization: RCA clear left main normal size. LAD in its proximal portion irregular ectatic changes with a plaque with 40% stenosis. October 29: White count 8.5 globin 13.9 platelets 227 sodium 139 potassium 3.8 creatinine 0.7 Troponin I x 3 less than 0.012 LDL 78.8 EKG tracing personally reviewed by me-normal sinus rhythm. Some T ST wave changes. Nonspecific Chest x-ray film personally reviewed by me-unremarkable Assessment plan: -Unstable angina in a patient with findings of mild to moderate nonobstructive disease per cardiac catheterization Patient seen by Dr. Lorraine Duarte from cardiology.-t cardiac catheterization. For medical management. Aspirin. Tenormin. Lipitor. Zetia. Imdur 30 mg added -Essential hypertension Tenormin 25 mg twice daily -Depression Paxil 40 mg a day -Anxiety Xanax as needed -Primary osteoarthritis Tylenol. Flexeril as needed -Chronic urinary stress incontinence Disposition: Home Past Medical History Past Medical History: Coronary Artery Disease (CAD), Chest Pain / Angina, Hyperlipidemia, Hypertension History of Any Multi-Drug Resistant Organisms: None Reported Past Surgical History: Appendectomy, Tonsillectomy Additional Past Surgical History / Comment(s): R lung tumor, R lumpectomy with node removal, benign Past Psychological History: Depression Smoking Status: Never smoker Past Alcohol Use History: None Reported Past Drug Use History: None Reported Plan - Discharge Summary Discharge Rx Participant: No New Discharge Prescriptions: New Isosorbide Mononitrate ER [Imdur] 30 mg PO DAILY #90 tab Continue Ezetimibe/Simvastatin [Ezetimibe/Simvastatin 10-40 mg] 1 tab PO DAILY Cyclobenzaprine [Flexeril] 10 mg PO Q8H PRN PRN Reason: Muscle Spasm ALPRAZolam [Xanax] 0.25 - 0.5 mg PO TID PRN PRN Reason: Anxiety atenoloL 25 mg PO BID PARoxetine HCL 40 mg PO DAILY Aspirin EC [Ecotrin Low Dose] 81 mg PO DAILY Cholecalciferol (Vitamin D3) [Vitamin D3 (50 Mcg = 2000 Iu)] 50 mcg PO DAILY Discharge Medication List ALPRAZolam [Xanax] 0.25 - 0.5 mg PO TID PRN 10/30/23 [History] Aspirin EC [Ecotrin Low Dose] 81 mg PO DAILY 10/30/23 [History] Cholecalciferol (Vitamin D3) [Vitamin D3 (50 Mcg = 2000 Iu)] 50 mcg PO DAILY 10/30/23 [History] Cyclobenzaprine [Flexeril] 10 mg PO Q8H PRN 10/30/23 [History] Ezetimibe/Simvastatin [Ezetimibe/Simvastatin 10-40 mg] 1 tab PO DAILY 10/30/23 [History] PARoxetine HCL 40 mg PO DAILY 10/30/23 [History] atenoloL 25 mg PO BID 10/30/23 [History] Isosorbide Mononitrate ER [Imdur] 30 mg PO DAILY #90 tab 10/31/23 [Rx] Follow up Appointment(s)/Referral(s): Som Ivy MD [Primary Care Provider] - 1-2 days Gonzalez Duarte MD [STAFF PHYSICIAN] - 11/07/23 3:15 pm Patient Instructions/Handouts: *Surgery [facility] - After Heart Catheterization - [employer] Instructions, Chest Pain (DC) Activity/Diet/Wound Care/Special Instructions: dc when ok with cardio Discharge Disposition: HOME SELF-CARE
[2023-11-01] MEDS ORDERED: ASPIRIN 81 MG PO SCH (09:00)
== END 2023-10-31 19:25 | disposition home or self-care (01) ==
LOC: EC 15:39 → 6NMEDSUR 18:20
PROVIDERS: ADMIT Hospitalist; ATTEND Hospitalist
DX: I25.110 Atherosclerotic heart disease of native coronary artery with unstable angina pectoris (principal); E78.5 Hyperlipidemia, unspecified; I10 Essential (primary) hypertension; F32.A Depression, unspecified; F41.9 Anxiety disorder, unspecified; M19.91 Primary osteoarthritis, unspecified site; N39.3 Stress incontinence (female) (male); I25.2 Old myocardial infarction; Z79.82 Long term (current) use of aspirin; Z79.899 Other long term (current) drug therapy; Z88.0 Allergy status to penicillin; Z88.2 Allergy status to sulfonamides
CPT/HCPCS: 36415; 71046; 80053; 80061; 83735; 84484; 85025; 85379; 85610; 85730; 93005; 93458; 99285

== ENCOUNTER → 2023-12-19 | Outpatient (CLI) | payer MEDICARE ==
--- NOTE | 2023-12-19 10:01 | MM ---
Reason for Exam: Hx of breast cancer, conservation therapy. Last mammogram was performed 1 year(s) and 1 month(s) ago. Patient History: Menarche at age 16. First Full-Term at age 19. Right ovary removed at age 31. Hysterectomy at age 31. Postmenopausal. Breast cancer, right, age 73. Previous chest radiation therapy at age 73. Patient used Estrogen for 15 years. Patient used Hormonal Contraceptives for 10 years. 2019, Excisional Biopsy on the Right side. 01/26/2019, Lumpectomy on the Right side. Radiation Therapy. Prior Study Comparison: 12/08/2018 Screening Mammogram, Unknown. 12/31/2018 Screening Mammogram, Unknown. 12/10/2019 Bilateral Diagnostic Mammogram, [facility]. 06/09/2020 Right Diagnostic Mammogram, [facility]. 12/12/2020 Bilateral Diagnostic Mammogram, [facility]. 12/13/2021 Bilateral MG 3D diag mammo w/cad [facility], [facility]. 12/16/2022 Bilateral MG 3D diag mammo w/cad [facility], [facility]. Tissue Density: The breasts are heterogeneously dense, which may obscure small masses. Findings: Analyzed By CAD. Postsurgical and posttreatment changes right breast. No significant change from prior exams. Overall Assessment: Benign, BI-RAD 2 Management: Screening Mammogram of both breasts in 1 year. Results were given to the patient verbally at the time of exam. Patient should continue monthly self-breast exams. A clinical breast exam by your physician is recommended on an annual basis. This exam should not preclude additional follow-up of suspicious palpable abnormalities. [facility], , 12/19/2023 9:58 AM. Electronically signed and approved by: Corky Sandoval M.D. Radiologist
== END | disposition home or self-care (01) ==
LOC: RADMAMWWP 09:00
PROVIDERS: ATTEND Radiology Radiation Oncology
DX: C50.911 Malignant neoplasm of unspecified site of right female breast (principal); R92.333 Mammographic heterogeneous density, bilateral breasts; Z78.0 Asymptomatic menopausal state; Z85.3 Personal history of malignant neoplasm of breast; Z90.722 Acquired absence of ovaries, bilateral; Z92.0 Personal history of contraception; Z92.3 Personal history of irradiation
CPT/HCPCS: 77066; G0279; 77062